=== PATIENT | male | born 1985 | race Caucasian/White ===

== ENCOUNTER 2018-06-05 21:23 | Emergency (ER) | payer OTHER ==
[2018-06-05 22:25] VITALS: BP 148/71
== END 2018-06-05 22:25 | disposition home or self-care (01) ==
LOC: ED 21:23
DX: H02.89 Other specified disorders of eyelid (principal)

== ENCOUNTER 2019-09-05 00:19 | Emergency (ER) | payer OTHER ==
[~2019-09-05] VITALS: Ht 139.7 cm; Wt 70.3 kg
[2019-09-05 00:31] VITALS: Ht 139.7 cm; Wt 70.3 kg
[2019-09-05 02:08] LABS: BASOPHIL % 0.2 % (0-2); PLATELET COUNT 280 x10^3mcL (130-400); RED CELL DISTRIBUTION WIDTH 12.7 % (11.5-14.5)
[2019-09-05 02:25] LABS: CARBON DIOXIDE 18.4 mmol/L (21-32); CHLORIDE SERUM 103 mmol/L (98-107); CREATININE SERUM 1.2 mg/dL (0.7-1.3); GFR1 > 60 mL/min; GLUCOSE SERUM 172 mg/dL (74-106); POTASSIUM SERUM 3.7 mmol/L (3.5-5.1); SODIUM SERUM 141 mmol/L (136-145)
[2019-09-05 02:26] LABS: ALBUMIN 4.5 g/dL (3.4-5.0); ALKALINE PHOSPHATASE 71 U/L (46-116); ALT/SGPT 45 U/L (16-63); AST/SGOT 23 U/L (15-37); BILIRUBIN TOTAL 0.86 mg/dL (0.20-1.00); CALCIUM 9.5 mg/dL (8.5-10.1); LIPASE 61 IU/L (73-393); TOTAL PROTEIN, SERUM 8.1 g/dL (6.4-8.2)
[2019-09-05 03:15] LABS: AMPHETAMINE QUAL UR NONE DETECTED (See below)
[2019-09-05 04:34] VITALS: BP 140/85
== END 2019-09-05 04:34 | disposition home or self-care (01) ==
LOC: ED 00:19
PROVIDERS: Emergency Medicine
DX: R11.2 Nausea with vomiting, unspecified (principal); R10.84 Generalized abdominal pain
CPT/HCPCS: 87804; J2270; J2405; J7030

== ENCOUNTER 2020-01-12 22:10 | Emergency (ER) | payer OTHER, SELFPAY ==
[~2020-01-12] VITALS: Ht 162.6 cm; Wt 65.8 kg
[2020-01-12 22:52] VITALS: Ht 162.6 cm; Wt 65.8 kg
[2020-01-13 00:21] LABS: BASOPHIL % 0.6 % (0-2); RED CELL DISTRIBUTION WIDTH 13.8 % (11.5-14.5)
[2020-01-13 00:27] LABS: PLATELET COUNT 587 x10^3mcL (130-400)
[2020-01-13 02:15] LABS: CALCIUM 9.2 mg/dL (8.5-10.1); CHLORIDE SERUM 107 mmol/L (98-107); CREATININE SERUM 0.8 mg/dL (0.7-1.3); GFR1 > 60 mL/min; GLUCOSE SERUM 99 mg/dL (74-106); POTASSIUM SERUM 3.4 mmol/L (3.5-5.1); SODIUM SERUM 146 mmol/L (136-145)
[2020-01-13 02:19] LABS: ALBUMIN 3.8 g/dL (3.4-5.0); ALKALINE PHOSPHATASE 65 U/L (46-116); ALT/SGPT 35 U/L (16-63); AST/SGOT 20 U/L (15-37); BILIRUBIN TOTAL 0.4 mg/dL (0.20-1.00); LIPASE 95 IU/L (73-393); TOTAL PROTEIN, SERUM 7.8 g/dL (6.4-8.2)
[2020-01-13 02:46] VITALS: BP 128/98
== END 2020-01-13 02:46 | disposition home or self-care (01) ==
LOC: ED 22:10
PROVIDERS: Emergency Medicine
DX: B34.9 Viral infection, unspecified (principal); Z20.828 Contact with and (suspected) exposure to other viral communicable diseases
CPT/HCPCS: 36415; 85378; Q0092; U0003-CS